=== PATIENT | male | born 1960 | race Caucasian/White ===

== ENCOUNTER → 2017-08-05 09:04 | Outpatient (CLI) | payer OTHER, SELFPAY ==
[2017-08-05 10:12] LABS: Absolute Lymphocyte Count 1.53 X10^3/ul (0.83-4.51); Absolute Neutrophil Count 2.7 X10^3/uL (2.0-7.7); Basophil# 0.01 X10^3/uL; Basophil% 0.2 % (0-1); Eosinophil# 0.03 X10^3/uL; Eosinophils% 0.7 % (0-5); Immature Platelet Fraction 1.2 % (1.0-7.9); Lymphocyte # 1.53 X10^3/ul (4.0); Lymphocyte % 33.5 % (19-41); Mean Corp Hgb Conc 31.7 g/gl (32-36); Mean Corpuscular Hgb 27.9 pg (27.0-32.0); Mean Platelet Vol. 9.8 fl (6.2-12.0); Monocyte# 0.26 X10^3/uL; Monocyte% 5.7 % (0-10); Neutrophil # 2.73 X10^3/uL (2.7-7.7); Neutrophil % 59.7 % (47-70); Platelet Count 234 K/mm3 (150-450); RBC Distribution Width CV 14.2 % (11.6-14.6); RBC Distribution Width SD 45.6 fl (35.1-43.9); Red Blood Count 4.66 M/mm3 (4.6-6.2); Reticulocyte Count 1.63 % (0.5-1.5); White Blood Count 4.6 K/mm3 (4.4-11.0)
[2017-08-05 10:13] LABS: POSITIVE COUNT NO; POSITIVE DIFFERENTIAL NO; POSITIVE MORPHOLOGY NO
[2017-08-05 10:49] LABS: Vitamin D,25 Hydroxy 15.1 ng/mL (29.95-100.01)
[2017-08-05 11:15] LABS: AST(SGOT) 20 U/L (15-37); Alanine Aminotransfer ALT/SGPT 33 U/L (16-61); Albumin, Serum 3.3 g/dL (3.2-5.0); Alkaline Phosphatase 117 U/L (45-117); Anion Gap 6 (5-15); BUN 12 mg/dL (7-18); BUN/Creat Ratio 13.8 RATIO (10-20); Calcium,Total 8.3 mg/dL (8.5-10.1); Chloride 107 mmol/L (98-107); Cholesterol 119 mg/dL (200); Creatinine, Serum 0.87 mg/dL (0.70-1.30); EST Glomerular Filtration Rate 96 mL/min (>60); Est Glom Filt Rate - Afr Amer 116 mL/min (>60); Ferritin 13 ng/mL (26-388); Globulin 3.4 g/dL (2.2-4.2); Glucose 142 mg/dL (74-106); High Density Lipoprotein 51 mg/dL; Iron Binding Capacity,Total 378 ug/dL (250-450); Magnesium 1.8 mg/dL (1.6-2.6); Potassium 3.7 mmol/L (3.5-5.1); Protein, Total 6.7 g/dL (6.4-8.2); Sodium Level 141 mmol/L (136-145); Thyroid Stim Hormone (TSH) 0.67 uIU/mL (0.358-3.74); Triglycerides 116 mg/dL; Uric Acid 4.5 mg/dL (3.5-7.2); Very Low Density Lipoprotein 23 mg/dL (5-40)
== END ==
PROVIDERS: Family Provider Family Medicine; PCP Family Medicine; Visit Provider Family Medicine
DX: E63.9 Nutritional deficiency, unspecified (principal); E61.1 Iron deficiency; D51.9 Vitamin B12 deficiency anemia, unspecified; E79.0 Hyperuricemia without signs of inflammatory arthritis and tophaceous disease; E11.39 Type 2 diabetes mellitus with other diabetic ophthalmic complication
CPT/HCPCS: 36415; 80053; 80061; 82043; 82306; 82570; 82728; 82746; 83550; 83735; 84100; 84443; 84550; 85025; 85045

== ENCOUNTER → 2018-10-04 | Outpatient (CLI) | payer BC, SELFPAY ==
[2015-03-11 08:19] VITALS: BMI 44.7
[2018-10-04 12:07] LABS: Absolute Lymphocyte Count 1.19 X10^3/ul (0.83-4.51); Absolute Neutrophil Count 4.1 X10^3/uL (2.0-7.7); Basophil# 0.01 X10^3/uL; Basophil% 0.2 % (0-1); Eosinophil# 0.09 X10^3/uL; Eosinophils% 1.6 % (0-5); Hematocrit 41.5 % (40-54); Immature Platelet Fraction 1.8 % (1.0-7.9); Lymphocyte # 1.19 X10^3/ul (4.0); Lymphocyte % 20.7 % (19-41); Mean Corp Hgb Conc 33.7 g/gl (32-36); Mean Corpuscular Hgb 30.6 pg (27.0-32.0); Mean Corpuscular Volume 90.6 fL (80-94); Mean Platelet Vol. 9.5 fl (6.2-12.0); Monocyte# 0.37 X10^3/uL; Monocyte% 6.4 % (0-10); Neutrophil # 4.07 X10^3/uL (2.7-7.7); Neutrophil % 70.9 % (47-70); Platelet Count 197 K/mm3 (150-450); RBC Distribution Width SD 42.6 fl (35.1-43.9); RET-HE 32.7 pg (30-35); Red Blood Count 4.58 M/mm3 (4.6-6.2); Reticulocyte Count 1.68 % (0.5-1.5); White Blood Count 5.7 K/mm3 (4.4-11.0)
[2018-10-04 12:13] LABS: POSITIVE COUNT NO; POSITIVE DIFFERENTIAL NO; POSITIVE MORPHOLOGY NO
[2018-10-04 12:21] LABS: Microalbumin,Random Urine 5.9 mg/L (NO RANGE EST.); Microalbumin:Creatinine Ratio 17.5 mg/g CRE (<30 mg/g CRE)
[2018-10-04 12:24] LABS: Vitamin D,25 Hydroxy 27.8 ng/mL (29.95-100.01)
[2018-10-04 12:47] LABS: ALB/GLOB Ratio 0.9 RATIO (0.9-2.4); AST(SGOT) 24 U/L (15-37); Alanine Aminotransfer ALT/SGPT 33 U/L (16-61); Albumin, Serum 3.1 g/dL (3.2-5.0); Alkaline Phosphatase 152 U/L (45-117); Anion Gap 9 (5-15); BUN 10 mg/dL (7-18); BUN/Creat Ratio 9.7 RATIO (10-20); Calcium,Total 8.4 mg/dL (8.5-10.1); Chloride 103 mmol/L (98-107); Cholesterol 75 mg/dL (200); Creatinine, Serum 1.03 mg/dL (0.70-1.30); EST Glomerular Filtration Rate 79 mL/min (>60); Est Glom Filt Rate - Afr Amer 95 mL/min (>60); Ferritin 139 ng/mL (26-388); Globulin 3.3 g/dL (2.2-4.2); Glucose 145 mg/dL (74-106); High Density Lipoprotein 37 mg/dL; Iron Binding Capacity,Total 246 ug/dL (250-450); Magnesium 1.7 mg/dL (1.6-2.6); Phosphorus 3.6 mg/dL (2.5-4.9); Potassium 3.7 mmol/L (3.5-5.1); Protein, Total 6.4 g/dL (6.4-8.2); Sodium Level 138 mmol/L (136-145); Thyroid Stim Hormone (TSH) 0.78 uIU/mL (0.358-3.74); Triglycerides 82 mg/dL; Uric Acid 3.4 mg/dL (3.5-7.2); Very Low Density Lipoprotein 16 mg/dL (5-40)
== END | disposition home or self-care (01) ==
LOC: MFPLAB 09:47
PROVIDERS: Family Provider Family Medicine; PCP Family Medicine; Referring Provider Family Medicine; Visit Provider Family Medicine
DX: E11.39 Type 2 diabetes mellitus with other diabetic ophthalmic complication (principal); E63.9 Nutritional deficiency, unspecified; E61.1 Iron deficiency; D53.1 Other megaloblastic anemias, not elsewhere classified; E79.0 Hyperuricemia without signs of inflammatory arthritis and tophaceous disease
CPT/HCPCS: 36415; 80053; 80061; 82043; 82306; 82570; 82728; 82746; 83550; 83735; 84100; 84443; 84550; 85025; 85045

== ENCOUNTER → 2019-06-27 09:21 | Outpatient (CLI) | payer BC, SELFPAY ==
[2015-03-11 08:19] VITALS: BMI 44.7
[2019-06-27 12:21] LABS: Absolute Lymphocyte Count 1.76 X10^3/uL (0.83-4.51); Basophil# 0.02 X10^3/uL; Basophil% 0.3 % (0-1); Eosinophil# 0.03 X10^3/uL; Eosinophils% 0.4 % (0-5); Hematocrit 49.3 % (40-54); Hemoglobin 16.4 g/dL (13.0-16.5); Lymphocyte # 1.76 X10^3/ul (4.0); Lymphocyte % 24.1 % (19-41); Mean Corp Hgb Conc 33.3 g/dL (32-36); Mean Corpuscular Hgb 30.6 pg (27.0-32.0); Mean Platelet Vol. 9.5 fl (6.2-12.0); Monocyte# 0.51 X10^3/uL; NRBC Flagged by Analyzer 0 % (0-5); Neutrophil # 4.96 X10^3/uL (2.7-7.7); Neutrophil % 67.8 % (47-70); Platelet Count 235 K/mm3 (150-450); RBC Distribution Width CV 13.1 % (11.6-14.6); RBC Distribution Width SD 44.1 fl (35.1-43.9); Red Blood Count 5.36 M/mm3 (4.6-6.2); White Blood Count 7.3 K/mm3 (4.4-11.0)
[2019-06-27 12:53] LABS: Hemoglobin A1c 6.5 % (4.2-6.3)
[2019-06-27 12:56] LABS: AST(SGOT) 52 U/L (15-37); Alanine Aminotransfer ALT/SGPT 103 U/L (16-61); Albumin, Serum 3.5 g/dL (3.2-5.0); Alkaline Phosphatase 133 U/L (45-117); Anion Gap 5 (5-15); BUN 17 mg/dL (7-18); BUN/Creat Ratio 14.9 RATIO (10-20); Calcium,Total 8.9 mg/dL (8.5-10.1); Chloride 106 mmol/L (98-107); Creatinine, Serum 1.14 mg/dL (0.70-1.30); EST Glomerular Filtration Rate 70 mL/min (>60); Est Glom Filt Rate - Afr Amer 85 mL/min (>60); Ferritin 244 ng/mL (26-388); Globulin 3.6 g/dL (2.2-4.2); Glucose 142 mg/dL (74-106); Iron 101 ug/dL (65-175); Iron Binding Capacity,Total 313 ug/dL (250-450); Magnesium 2.1 mg/dL (1.6-2.6); Potassium 3.9 mmol/L (3.5-5.1); Protein, Total 7.1 g/dL (6.4-8.2); Sodium Level 140 mmol/L (136-145); Thyroid Stim Hormone (TSH) 4.31 uIU/mL (0.358-3.74)
[2019-06-27 12:59] LABS: Vitamin B12 > 2000 pg/mL (211-911)
[2019-06-27 13:26] LABS: Microalbumin:Creatinine Ratio 12.2 mg/g CRE (<30 mg/g CRE)
== END ==
PROVIDERS: PCP Family Medicine; Referring Provider Family Medicine; Visit Provider Family Medicine
DX: E11.39 Type 2 diabetes mellitus with other diabetic ophthalmic complication (principal); D64.9 Anemia, unspecified; G62.9 Polyneuropathy, unspecified
CPT/HCPCS: 36415; 80053; 82043; 82570; 82607; 82728; 82746; 83036; 83540; 83550; 83735; 84443; 85025

== ENCOUNTER 2020-01-26 09:16 | Emergency (ER) | payer BC, SELFPAY ==
[2020-01-26] MEDS: Naloxone 2 MG/2 ML Syringe IV (09:17)
[2020-01-26 09:18] VITALS: BP 139/88; PULSE 91; RESP 28; TEMP 36.8; O2SAT 98; BMI 41.0
--- NOTE | 2020-01-26 09:23 | EKG12_ITS ---
Test Reason : UNRESPONSIVE Blood Pressure : / mmHG Vent. Rate : 089 BPM Atrial Rate : 089 BPM P-R Int : 184 ms QRS Dur : 138 ms QT Int : 402 ms P-R-T Axes : 072 006 016 degrees QTc Int : 489 ms Normal sinus rhythm Right bundle branch block T wave abnormality, consider inferior ischemia Abnormal ECG Confirmed by MARISSA NELSON, LOKESH ([id number]), make up editor RACHEL BECK ([id number]) on 01/27/2020 11:33:01 A M Referred By: VIMAL Confirmed By:ANTONIO ANN MD
--- NOTE | 2020-01-26 09:23 | RAD_ITS ---
STUDY: X-RAY CHEST REASON FOR EXAM: Male, 59 years old. PD FOUND PT UNRESPONSIVE IN VEHICLE. SNORING RESP, PULSE [address], PINPOINT PUPILS, TURNING BLUE FOR EMS. TECHNIQUE: Single AP portable view of the chest. COMPARISON: 09/01/2011. FINDINGS: Cardiac silhouette unremarkable. Minimal congestion. Aorta unremarkable. Faint hazy airspace opacities. No pleural effusions. Stable left lower lung/peripheral nodule Upper abdomen unremarkable. Osseous structures intact. No pneumothorax. RAD/Chest 1 View (Portable) IMPRESSION: Faint hazy airspace opacities with minimal congestion Stable left lower lung/peripheral nodule Electronically Signed: Fran Edwards DO at 9:51 EDT Tel , Service support ,
--- NOTE | 2020-01-26 09:24 | ED.RN ---
AFTER NARCAN ADMINISTRATION, PT BECAME RESPONSIVE.
[2020-01-26 09:44] LABS: Absolute Lymphocyte Count 2.11 X10^3/uL (0.83-4.51); Absolute Neutrophil Count 3.3 X10^3/uL (2.0-7.7); Basophil# 0.02 X10^3/uL; Basophil% 0.3 % (0-1); Eosinophil# 0.06 X10^3/uL; Hemoglobin 15.6 g/dL (13.0-16.5); Lymphocyte # 2.11 X10^3/ul (4.0); Lymphocyte % 35.3 % (19-41); Mean Corp Hgb Conc 32.5 g/dL (32-36); Mean Corpuscular Hgb 30.1 pg (27.0-32.0); Mean Corpuscular Volume 92.7 fL (80-94); Mean Platelet Vol. 9.5 fl (6.2-12.0); Monocyte# 0.47 X10^3/uL; Monocyte% 7.9 % (0-10); NRBC Flagged by Analyzer 0 % (0-5); Neutrophil # 3.26 X10^3/uL (2.7-7.7); Neutrophil % 54.5 % (47-70); Platelet Count 174 K/mm3 (150-450); RBC Distribution Width CV 12.8 % (11.6-14.6); RBC Distribution Width SD 43.4 fl (35.1-43.9); Red Blood Count 5.18 M/mm3 (4.6-6.2)
[2020-01-26 09:58] LABS: AST(SGOT) 47 U/L (15-37); Alanine Aminotransfer ALT/SGPT 57 U/L (16-61); Albumin, Serum 3.3 g/dL (3.2-5.0); Alkaline Phosphatase 113 U/L (45-117); Anion Gap 6 (5-15); BUN 13 mg/dL (7-18); BUN/Creat Ratio 10.6 RATIO (10-20); Calcium,Total 8.3 mg/dL (8.5-10.1); Chloride 103 mmol/L (98-107); Creatinine, Serum 1.23 mg/dL (0.70-1.30); EST Glomerular Filtration Rate 64 mL/min (>60); Est Glom Filt Rate - Afr Amer 77 mL/min (>60); Estimated Creatinine Clearance 70.98 ml/min; Globulin 3.4 g/dL (2.2-4.2); Glucose 252 mg/dL (74-106); Potassium 4.1 mmol/L (3.5-5.1); Protein, Total 6.7 g/dL (6.4-8.2); Sodium Level 136 mmol/L (136-145)
--- NOTE | 2020-01-26 10:07 | ED.VISSUMM ---
- ER Visit Summary Date of Service: 01/26/20 Chief Complaint: Unresponsive History of Present Illness: The patient is a 59 M who presents by EMS after being found unresponsive by police. Patient was apparently driving his car and was starting to become unresponsive. Patient apparently pulled his car off to the side of the road. Police found the patient unresponsive. EMS reported the blood sugar was 233. EMS placed the patient on oxygen. Patient had no improvement with this. Patient was given Narcan and became more awake. Patient does not remember getting dressed or driving his car today. Later, the patient remembered taking medication from a friend. He does not know what the medication was. Physical Examination: Vital signs are stable. Patient is afebrile. Patient is in no acute distress. Pupils are 3 mm and reactive. Oral mucosa is pink and moist. Neck is supple. Trachea is midline. There is no JVD noted. Heart was regular rate and rhythm. Lungs are clear and equal bilaterally. Patient has shallow respirations. Abdomen is soft. Bowel sounds are normal. There is no tenderness. There is no rebound or guarding noted. Skin is warm dry. Cranial nerves II through XII are intact. There are no focal motor or sensory deficits noted. Extremities are intact. There is no calf tenderness or edema. Test Results: EKG showed normal sinus rhythm with a rate of 89. There is a right bundle branch block pattern noted. There are no acute ST or T wave changes. There are no prior EKGs available for comparison. CBC and comprehensive metabolic profile were essentially within normal limits. Glucose was elevated at 252. Troponin was normal. Portable chest x-ray was obtained. There are faint hazy airspace opacities with minimal congestion. There is a stable left lower lung peripheral nodule. There is no acute cardiopulmonary process. This was interpreted by the radiologist and reviewed by myself. Emergency Department Course and Treatment: Patient was given 2 mg of Narcan IV. Patient became more awake and alert after this. Patient was given IV fluids. On reevaluation, the patient admits to taking 1 tablet of either oxycodone or hydrocodone today. Patient denies taking it with tramadol or other medications. Patient states that was the only medicine he took today. Patient currently remains awake, alert, and oriented x3. Patient was observed in the emergency department. Patient was instructed to follow-up with his primary care physician in 5 to 7 days. Patient understood and was agreeable with the plan. All questions were answered. Disposition: Discharge home Impression: 1. Opiate overdose This note was generated with [employer] dictation software. It may contain incorrect words, spelling, and punctuation that were not noted in review of the chart prior to signing ED Disposition - Plan for ED Patient: Disposition: Home or Assisted Living Diagnosis: Opiate overdose Instructions: ED Overdose Opiate Referrals: Fran Garcia MD [Primary Care Provider] - 5-7 Days
[2020-01-26 10:54] VITALS: BP 130/71; PULSE 82; RESP 17; O2SAT 96
[2020-01-26 11:13] VITALS: BP 130/86; PULSE 81; RESP 15; O2SAT 96
--- NOTE | 2020-01-26 11:33 | ED.RN ---
pt wondering how long pt is to be observed. this rn talked with physician. pt also requesting information on detox/ drug addiction services. Sarai hyatt
--- NOTE | 2020-01-26 11:46 | CM.ED ---
Social Work Consult: Substance Abuse Informant: Nursing staff Chief Complaint: Patient became unresponsive after taking a friend prescription medication. 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 Marital/Social History: . to Erickann. Patient has no children. Living Situation: Lives with spouse. Support/Resources: No active community resources. Education/Employment: Disability. Patient makes pottery dishes to sell. Patient denies any concerns for comprehension or understanding. Abuse Issues: Did not assess Substance Abuse/use: Patient reports history of prescription drug abuse for the past 10 years. Patient states to have taken patient spouse medication last week when I caught him states patient spouse. Patient denies any other substance abuse/use. Risk to Self/Others: Patient admits to having suicidal thoughts with no plan an no intent. Patient suicidal thoughts are not daily or frequent. Patient states to want to live for spouse and to not want to put my family through that. Mental Status Exam: A&Ox3 Appearance/General Behavior: Appropriate. Calm. Mood/Affect: Frustrated with self. I made a dumb choice. Patient states to be frustrated that patient has now lost patient spouse trust and I understand why. Assessment: Met with patient and patient spouse in room. Introduced self and bilingual social worker role. Patient agreeable to speaking with this bilingual social worker and wanting patient spouse to remain in the room during conversation. Patient is requesting information on substance abuse resources and voicing interest in starting a program. This bilingual social worker providing patient with substance abuse resources and encouraging patient to follow up with community supports. Patient and patient spouse thanking this bilingual social worker. Patient spouse visibly frustrated with patient due to patient choices today. This bilingual social worker able to facilitate conversation about things that patient is currently able to control such as getting set up with community supports. Active listening provided. PLAN: Discharge to home with spouse. Naren CABRERA, EUNICE
[2020-01-26 11:56] VITALS: BP 125/85; PULSE 76; RESP 18; O2SAT 96
--- NOTE | 2020-01-26 12:02 | ED.RN ---
pt requesting [place] police to stop back into department so pt can apologize. dispatch contacted
[2020-01-26 12:18] VITALS: BP 139/96; PULSE 77; RESP 16; TEMP 36.1
== END 2020-01-26 12:32 | disposition home or self-care (01) ==
PROVIDERS: Emergency Provider Emergency Medicine; PCP Family Medicine
DX: T40.601A Poisoning by unspecified narcotics, accidental (unintentional), initial encounter (principal); Y92.810 Car as the place of occurrence of the external cause; I45.10 Unspecified right bundle-branch block; M54.2 Cervicalgia; R05 Cough; R73.02 Impaired glucose tolerance (oral); J02.9 Acute pharyngitis, unspecified; R06.00 Dyspnea, unspecified; E66.9 Obesity, unspecified; Z72.0 Tobacco use; Z79.01 Long term (current) use of anticoagulants; Z79.899 Other long term (current) drug therapy
CPT/HCPCS: 71045; 80053; 84484; 85025; 93005; 96361; 96374; 99285; A4216

== ENCOUNTER 2020-01-27 11:37 | Emergency (ER) | payer BC, SELFPAY ==
[2020-01-26 09:18] VITALS: BMI 41.0
[2020-01-27 11:38] VITALS: BP 149/97; PULSE 90; RESP 10; TEMP 36.8; O2SAT 100; BMI 41.0
--- NOTE | 2020-01-27 11:44 | ED.RN ---
PT STATES HE TOOK A 30MG OXYCODONE.
--- NOTE | 2020-01-27 12:06 | CT_ITS ---
STUDY: CT BRAIN WITHOUT CONTRAST REASON FOR EXAM: Male, 59 years old. FALL RADIATION DOSAGE (If Supplied By Facility): CTDIvol = ( 60.81 ) mGy, DLP = ( 1112.69 ) mGycm TECHNIQUE: Transaxial CT imaging of the brain was performed without administration of intravenous contrast material. Individualized dose optimization techniques were used for this CT. COMPARISON: No relevant priors. FINDINGS: Small frontal scalp hematoma with evidence of the sutures. Normal calvarium. Normal size ventricles and extra-axial spaces for the patient''s age. Normal white matter tracts of the cerebral hemispheres. Normal basal ganglia and thalami. Normal brainstem. Normal cerebellum. There is no intracranial hemorrhage. There are no findings of an acute ischemic infarction. Normal visualized paranasal sinuses. CT/Brain/Head without Contrast IMPRESSION: Frontal scalp soft tissue swelling and hematoma with evidence of laceration. Electronically Signed: Juan Winston, at 12:36 EDT , Service support ,
--- NOTE | 2020-01-27 12:07 | CT_ITS ---
STUDY: CT CERVICAL SPINE WITHOUT CONTRAST REASON FOR EXAM: Male, 59 years old. FALL RADIATION DOSAGE (If Supplied By Facility): CTDIvol = ( 32.11 ) mGy, DLP = ( 714.19 ) mGycm TECHNIQUE: High resolution transaxial imaging was performed without contrast material. Sagittal and coronal images were reconstructed. Individualized dose optimization techniques were used for this CT. COMPARISON: None FINDINGS: Normal craniovertebral junction. Normal anterior atlantoaxial articulation. Normal odontoid process. Normal cervical lordosis. Normal vertebral bodies and posterior osseous elements. C2-3: Normal endplates. Normal disc height and morphology. Normal central canal and intervertebral neuroforamina. C3-4: Normal endplates. Normal disc height and morphology. Normal central canal and intervertebral neuroforamina. C4-5: Normal endplates. Normal disc height and morphology. Normal central canal and intervertebral neuroforamina. C5-6: Normal endplates. Normal disc height and morphology. Normal central canal and intervertebral neuroforamina. C6-7: Normal endplates. Normal disc height and morphology. Normal central canal and intervertebral neuroforamina. C7-T1: Normal endplates. Normal disc height and morphology. Normal central canal and intervertebral neuroforamina. Normal visualized soft tissue structures. CT/Spine Cervical without Contras IMPRESSION: Normal unenhanced CT examination of the cervical spine. Electronically Signed: Juan Winston, at 12:52 EDT , Service support ,
--- NOTE | 2020-01-27 12:53 | ED.DCSUM_ITS ---
- ER Visit Summary Date of Service: 01/27/20 Chief Complaint: Overdose History of Present Illness: The patient is a 59 M who presents after overdose today. Patient was seen here yesterday for the same thing. Patient states he took a 30 mg tablet of OxyContin today. Patient was found unresponsive at work. Patient fell and hit his head. EMS administered 2 mg of Narcan intranasally. Patient became more awake and alert after this. Patient denies any nausea or vomiting. Patient denies any diarrhea. Patient denies any seizures. Patient denies any chest pain or shortness of breath. Patient does admit to some pain in his head, neck, and upper back. Physical Examination: Vital signs are stable. Patient is afebrile. Patient is in no acute distress. Skin is warm and dry. There are abrasions noted over the forehead. There is no active bleeding. There is no bony crepitance or step- off. Pupils are equal, round, and reactive to light bilaterally. Extraocular muscles are intact. There is some dried blood noted over the external nose. There is some dried blood in the right nares. There is no blood in the left nares. There is no septal deviation or septal hematoma. Oral mucosa is pink and moist. Oropharynx is clear. Neck is supple. Trachea is midline. There is no JVD. Heart was regular rate and rhythm. Lungs are clear and equal bilaterally. Abdomen is soft and nontender. Cranial nerves II through XII are intact. There are no focal motor or sensory deficits. Test Results: CT scan of the brain was obtained. There is no acute intracranial abnormality. CT scan of the cervical spine was obtained. There is no acute fracture or dislocation. X-rays of the thoracic spine were obtained. There is no acute abnormality. On reevaluation, patient was complaining of pain in his right foot and ankle. There is some tenderness to palpation over this area. X- rays of the right foot and ankle were obtained. There is no acute fracture. These were interpreted by the radiologist and reviewed by myself. Emergency Department Course and Treatment: There were multiple abrasions noted over the face. There is also a 1 cm full-thickness linear laceration over the right upper lip just inferior to the right nares. There is minimal gapping of the wound margins. There are no foreign bodies. There is no through and through laceration noted. The wound was cleaned and irrigated with copious amounts of normal saline. The wound was closed with Dermabond skin adhesive. Patient tolerated procedure well. Patient was instructed to urinary care physician in 5 to 7 days. Patient was instructed to stop taking oxycodone. Patient was instructed to take Tylenol as needed for pain. Patient understood and was agreeable with the plan. All questions were answered. Disposition: Discharge home Impression: 1. Opiate overdose 2. Upper lip laceration 3. Facial abrasions 4. Cervical strain This note was generated with [employer] dictation software. It may contain incorrect words, spelling, and punctuation that were not noted in review of the chart prior to signing ED Disposition - Plan for ED Patient: Disposition: Home or Assisted Living Diagnosis: Opiate overdose, Facial laceration, Facial abrasion, Cervical strain, acute Instructions: ED Laceration Facial Skin Glue, ED Overdose Opiate Referrals: Fran Garcia MD [Primary Care Provider] - 5-7 Days
--- NOTE | 2020-01-27 12:55 | RAD_ITS ---
STUDY: X-RAY - THORACIC SPINE REASON FOR EXAM: Male, 59 years old. Fall, back pain TECHNIQUE: 3 view(s) of the thoracic spine were obtained. COMPARISON: None. FINDINGS: Normal kyphosis of the thoracic spine. There is no substantial scoliosis. There is demineralization of the thoracic spine with endplate spondylosis. There is multilevel disc space narrowing of the thoracic spine. The soft tissue structures are unremarkable. RAD/Thoracic Spine 3 Views IMPRESSION: Multilevel degenerative changes. No fractures. Electronically Signed: Juan Winston, at 13:17 EDT , Service support ,
[2020-01-27 13:17] VITALS: BP 123/85; PULSE 78; RESP 12; O2SAT 99
[2020-01-27] MEDS: Diphth,Pertuss(Acell),Tet Vac 0.5 ML Vial IM (13:34)
--- NOTE | 2020-01-27 14:00 | CM.ED ---
SOCIAL WORK Informant: Charge Nurse, Lois Reason for Consult: Overdose Reviewed chart. Patient seen by ED Sarai HUITRON yesterday. Met with patient in room. Introduced role and reason for referral. Patient states took 30mg Oxy today and don't understand, I have taken them before and never had this happen. Patient states he passed out at work. Discussed ER visit from yesterday and inquired if patient is wanting help with substance use. Patient states has appointment with counseling through '[facility] on Thursday. Patient reports counselors name is Urmila Castelan. Patient states, I also have that purple folder. Patient was given resources by ED SW yesterday. Patient denies any needs or referrals at this time. Updated nurse on this worker's conversation with patient. Will remain available for needs. Plan: RICK Ceballos, METER ENGINEER
[2020-01-27 14:12] VITALS: BP 139/81; PULSE 92; RESP 20; O2SAT 96
--- NOTE | 2020-01-27 14:36 | RAD_ITS ---
STUDY: X-RAY - RIGHT FOOT CLINICAL: Male, 59 years old. fall, right foot pain TECHNIQUE: 3 view(s) of the foot. COMPARISON: None. FINDINGS: Normal talus, calcaneus, and tarsal bones. Normal visualized subtalar, talonavicular, calcaneocuboid, tarsal and tarsometatarsal articulations. Normal metatarsi. Mild cortical thickening is seen along the shafts of the third and fourth metatarsal bones suggesting sequela from previous trauma or possible previous infection or inflammation. No visualized acute fracture. No evidence of osteomyelitis. The soft tissue structures are unremarkable. RAD/Foot min 3 Views IMPRESSION: 1. Mild cortical thickening is seen along the shafts of the third and fourth metatarsal bones suggesting sequela from previous trauma or possible previous infection or inflammation. No visualized acute fracture. No evidence of osteomyelitis. Electronically Signed: Rodney Kenny MD at 16:41 EDT , Service support ,
--- NOTE | 2020-01-27 15:40 | RAD_ITS ---
STUDY: X-RAY - RIGHT ANKLE REASON FOR EXAM: Male, 59 years old. fall, ankle pain TECHNIQUE: 3 view(s) of the ankle. COMPARISON: None. FINDINGS: A small plantar calcaneal spur is present. Mild soft tissue edema is present in the lower leg and ankle. Small soft tissue calcifications are also seen on the medial side of the lower leg. Normal visualized distal tibia and fibula. Normal medial and lateral malleoli. Normal tibiotalar articulation and ankle mortise. Normal visualized talus and calcaneus. The visualized subtalar, talonavicular, calcaneocuboid and tarsal articulations are normal. No visualized fracture. RAD/Ankle min 3 Views IMPRESSION: Mild soft tissue swelling Electronically Signed: Rodney Kenny MD at 16:36 EDT , Service support ,
[2020-01-27 15:41] VITALS: BP 117/71; PULSE 86; RESP 19; O2SAT 99
[2020-01-27 17:02] VITALS: BP 120/72; PULSE 87; RESP 18; O2SAT 99
== END 2020-01-27 17:03 | disposition home or self-care (01) ==
PROVIDERS: Emergency Provider Emergency Medicine; PCP Family Medicine
DX: T40.2X1A Poisoning by other opioids, accidental (unintentional), initial encounter (principal); Y92.9 Unspecified place or not applicable; S16.1XXA Strain of muscle, fascia and tendon at neck level, initial encounter; S01.511A Laceration without foreign body of lip, initial encounter; S00.81XA Abrasion of other part of head, initial encounter; M25.571 Pain in right ankle and joints of right foot; Z23 Encounter for immunization; W19.XXXA Unspecified fall, initial encounter; Y93.9 Activity, unspecified; Y99.0 Civilian activity done for income or pay; Z79.01 Long term (current) use of anticoagulants; Z79.899 Other long term (current) drug therapy
CPT/HCPCS: 12011; 70450; 72072; 72125; 73610; 73630; 90471; 90715; 99285; A4216

== ENCOUNTER → 2020-06-28 05:40 | Outpatient (CLI) | payer BC, SELFPAY ==
--- NOTE | 2020-07-01 15:25 | STRESSREP ---
Stress Test Report Date: 06/28/2020 Procedure: Pharmacologic stress nuclear imaging study Indications: Chest pain Consent: Per the patient Procedure: The patient underwent pharmacologic (Regadenoson) evaluation with a peak heart rate of 110 beats per minute (68%predicted maximal heart rate) and a peak blood pressure of 130/78 mmHg. The baseline ECG demonstrated normal sinus rhythm, right bundle branch block. EKG during lexiscan infusion revealed no significant ischemic changes. EKG post infusion revealed no significant ischemic changes [There were no cardiac dysrhythmias pretest, during pharmacologic infusion, or recovery]. [There was no complaint of chest discomfort during pharmacologic infusion or recovery]. The examination was discontinued secondary to completion of protocol. Impression: 1. Lexiscan stress test test is negative for Lexiscan infusion induced EKG changes of ischemia. 2. Lexiscan stress test test is negative for Lexiscan infusion induced chest pain. 3. Results of the nuclear portion of the test is as below Myocardial perfusion imaging study: Technique: The patient was injected with 14.9 millicuries of technetium 99m Cardiolite and subsequently rest SPECT Cardiolite nuclear imaging was obtained in the horizontal long, vertical long, and short axis views. The patient underwent pharmacologic evaluation with 0.4 mg of Lexiscan. Please see above for details. The patient was injected with 44.8 millicuries of technetium 99m Cardiolite and subsequently stress SPECT Cardiolite nuclear imaging was obtained in the horizontal long, vertical long, and short axis views. A gated Cardiolite study at peak stress was obtained. Interpretation: Rest and stress SPECT Cardiolite nuclear imaging status post realignment, normalization, and attenuation correction demonstrate mild inferior defect prior to attenuation correction. After attenuation correction there is normal uptake in the inferior wall. There is mild decrease in the radioisotope uptake in the apex on both the rest and stress images. Gated images reveal mild apical hypokinesis. These findings are suggestive of possible prior apical myocardial infarction with no evidence of significant ischemia. Diaphragmatic attenuation. The reported LVEF is 53%. Impression: 1. There is no evidence of significant ischemia. Possible prior apical myocardial infarction. 2. Estimated ejection fraction is 53% with mild apical hypokinesis. This note was generated with [employer] software. It may contain incorrect words, spelling, and punctuation that were not noted in checking the note before signing.
== END ==
PROVIDERS: PCP Family Medicine; Referring Provider Internal Medicine Endocrinology, Diabetes & Metabolism; Visit Provider Internal Medicine Endocrinology, Diabetes & Metabolism
DX: I20.9 Angina pectoris, unspecified (principal)
CPT/HCPCS: 78452; 93017; A9500; A4216; J2785

== ENCOUNTER → 2020-07-19 10:32 | Outpatient (CLI) | payer BC, SELFPAY ==
[2020-07-11 09:18] VITALS: BMI 43.4
--- NOTE | 2020-07-19 10:35 | ECHOCS_ITS ---
Reason For Study: HTN Procedure This was a 2D Doppler, Color Flow transthoracic echocardiogram. The study was technically difficult. Exam performed in department. Left Ventricle Normal LV size. Left ventricular systolic function is lower limits of normal. The estimated ejection fraction is 47 %. Stage 1 diastolic dysfunction. There is mild global hypokinesis of the left ventricle. Right Ventricle Normal RV size. Normal systolic function. Atria Normal left atrium. Normal right atrium. Mitral Valve Normal mitral valve. Tricuspid Valve Normal tricuspid valve. Unable to estimate RV systolic pressure due to inadequate jet, pulmonary artery pressure probably normal. Great Vessels Mild to moderately dilated aortic root. Pericardium/Pleural No pericardial effusion. Medication 22 gauge I.V. with prn adaptor inserted into right arm. Diluted definity 3ml given slow IV push to enhance endocardial definition. MMode/2D Measurements & Calculations LVIDd: 5.2 cm IVSd: 1.0 cm Ao root diam: 4.2 cm LVIDs: 3.5 cm LVPWd: 1.1 cm RVDd: 3.8 cm FS: 32.8 % LAV(MOD-bp): 47.7 ml LA A4 area: 17.5 cm2 LA dimension(2D): 4.6 cm LAV(MOD-bp) Indexed: 18.3 ml/m2 LAV(MOD-sp2): 46.8 ml LAV(MOD-sp4): 47.5 ml RA A4 area: 14.0 cm2 Doppler Measurements & Calculations MV E max christian: 52.9 cm/sec Lat Peak E' Christian: 8.9 cm/sec Med Peak E' Christian: 5.9 cm/sec MV A max christian: 74.8 cm/sec E/E' lat: 6.0 E/E' med: 9.0 MV E/A: 0.71 Ao V2 max: 124.5 cm/sec LV V1 max: 99.6 cm/sec PA V2 max: 91.3 cm/sec Ao max P.2 mmHg LV V1 max P.0 mmHg Interpretation Summary Normal LV size. Left ventricular systolic function is lower limits of normal. The estimated ejection fraction is 47 %. There is mild global hypokinesis of the left ventricle. Stage 1 diastolic dysfunction. Contrast injection was performed. Ordering Physician: Bunny Montez Referring Physician: Fran Garcia MD Performed By: Ellen Franklin RDCS
== END ==
PROVIDERS: PCP Family Medicine; Referring Provider Internal Medicine Cardiovascular Disease; Visit Provider Internal Medicine Cardiovascular Disease
DX: I10 Essential (primary) hypertension (principal)
CPT/HCPCS: 93306; Q9957; A4216; C8929

== ENCOUNTER → 2020-11-07 09:45 | Outpatient (CLI) | payer BC, SELFPAY ==
[2020-07-11 09:18] VITALS: BMI 43.4
--- NOTE | 2020-11-07 09:48 | RAD_ITS ---
STUDY: X-RAY - LEFT ANKLE REASON FOR EXAM: Male, 60 years old. PAIN TECHNIQUE: 3 view(s) of the ankle. COMPARISON: None. FINDINGS: Normal visualized distal tibia and fibula. Normal medial and lateral malleoli. Normal tibiotalar articulation and ankle mortise. Normal visualized talus. The visualized subtalar, talonavicular, calcaneocuboid and tarsal articulations are normal. Diffuse soft tissue swelling, subtle occult fracture cannot be excluded. RAD/Ankle min 3 Views IMPRESSION: No demonstrated fracture or ankle mortise abnormality Calcaneal spurs Nonspecific soft tissue swelling Electronically Signed: Cam Boles MD at 12:08 EDT , Service support ,
== END ==
PROVIDERS: PCP Family Medicine; Referring Provider Family Medicine; Visit Provider Family Medicine
DX: M25.572 Pain in left ankle and joints of left foot (principal)
CPT/HCPCS: 73610

== ENCOUNTER 2021-01-10 09:00 | Outpatient (RCR) | payer BC, SELFPAY ==
[2020-07-11 09:18] VITALS: BMI 43.4
--- NOTE | 2020-12-12 10:08 | HP.PTEVAL_ITS ---
Patient's Visit Information NORTH VALLADARES is a 60 year old M referred to Physical Therapy by Dr. Ronel Andrade MD with a diagnosis of LEFT ANKLE STRAIN. Date of Evaluation: 12/12/20 Physical Therapist: Long Celis PT, Cert MDT, OCS - Visit Plan Frequency: 2x /Week Duration: 4 Weeks Plan: PT INTEREVTIONS ANKLE ROM ,STRENGHENING RIGHT ANKLE ,HIP/KNEE STRENGTHENING ,FUNCTIONAL STRENGTHENING AND FLEXABLITY - Subjective This 60 y/o male presents to physical therapy with left ankle sprain. Patient was stepping of bed of trunk land on left leg and fell down due to compression of ankle . Patient seen DR 1 day later did x-rays - with fracture recommended PT. Initial, Patient did have ecchymosis ankle toes. Patient has pain with walking and standing affects ADLS' thus uses cane for extended distances .Patient is unable to squat /kneel has difficulty with stairs with one steps at a time. Patient denies paresthesia occasional tingling . Patient symptoms pain affects ADL'S and pottery which is hobby. Patient condition affects QOL and function. Patient does have pain entire leg knee and ankle describe as ache .COMORITIES: BILATERAL THR ,LUMBAR SURGERY. SOCAIL: . VOACTION: disability - Pain Left Ankle Pain Intensity (Out of 10): 3 Pain Intensity Range: 10 Comment: walking - Objective POSTURE: mild forward posture. GAIT: reciprocal pattern antalgic gait with cane. EDEMA: 1+ ANKLE. PROPRIOCEPTION: POOR. BALANCE: GOOD-. AROM ANKLE: dorsiflexion 5 degrees, plantar flexion 50 degrees ,inversion 20 degrees, eversion 5 degrees. MMT: ankle dorsiflexion 4/5.eversion/inversion/plantar flexion 4-/5,quads/hams 4-/5,hip flexion 4-/5,abd 3+/5. STAIRS: one steps at time with rail - Goals Goal 1:: I with HEP Goal Time Frame: 4-6 Weeks Goal 2:: Decrease pain ankle by 60% or > to improve function with ADL'S and gait Goal Time Frame: 4-6 Weeks Goal 3:: Patient to improve ankle WFL to improve gait Goal Time Frame: 4-6 Weeks Goal 4:: Patient to increase ankle strength 4/5 to improve gait and function. Goal Time Frame: 4-6 Weeks Goal 5:: Patient to improve LFES score by 5 points or > to improve function and gait. Goal Time Frame: 4-6 Weeks - Rehabilitation Potential Physical Therapy Diagnosis: This patient has left ankle sprain with swelling, pain, weakness ,decrease ROM impairs gait and function thus benefit from skilled PT Rehabilitation Potential: Good - Anticipated Interventions Patient/Client Instruction: Educate patient on: Condition, Plan of Care For the Purpose of:: To decrease pain, To increase ROM, To improve muscle performance and motor function, To improve ability to perform ADL's, To increase tolerance to activity/condition/position, To improve ability of physical actions for home/community/work/leisure, To improve health of tissue, To decrease soft tissue restriction, To increase flexibility/ROM, To improve endurance, To improve balance, To prevent re-injury Therapeutic Exercise to Include: Strength training, Endurance training, Balance training, Passive ROM, Active ROM Comment: ANKLE /HIP/KNEE For the Purpose of:: To decrease pain, To increase ROM, To improve muscle performance and motor function, To improve ability to perform ADL's, To increase tolerance to activity/condition/position, To improve gait and locomotor functions, To improve health of tissue, To decrease soft tissue restriction, To increase flexibility/ROM, To improve endurance, To improve balance, To improve s afety with gait, To improve ability to perform tasks related to life management TENS: Yes IF ES: Yes Thermo therapy (hot pack): Yes Ultrasound (thermal/non thermal): Yes For the Purpose of:: To decrease pain, To decrease swelling/inflammation, To increase ROM, To improve nutrient delivery to tissue, To increase oxygenation perfusion, To improve health of tissue, To decrease soft tissue restriction Thank you for the opportunity to evaluate your patient. For Medicare and Medicare HMO plans, please review the plan of care and approve it. It will need to be FAXED BACK to us at [phone] for Medicare purposes. For Medicare only, by signing this I certify the plan of care. Please let me know if there are questions or concerns regarding this plan of care. Physician Signature: Date:
--- NOTE | 2021-01-10 09:37 | HP.PTDCSUM ---
It has been my pleasure to treat NORTH VALLADARES referred by Dr. Ronel Andrade MD, with the diagnosis of LEFT ANKLE STRAIN for a total of 9 visit(s). Discharge Date: 01/10/21 Please see the following information for a summary of their discharge status. Subjective: Doing better overall ..but conts ro get occasional stabbing pain Left Ankle Pain Intensity (Out of 10): 2 % Improvement: 85 Objective/Function: POSTURE: MILD FORWARD POSTURE. GAIT:RECIPROCAL PATTERN WITH CANE ANTALGIC GAIT. MMT: QUADS/HAMS 4/5,ANKLE 4/5,HIP FLEXION 4-/5. STAIRS: ALTERANTING WITH CANE Goal 1:: I with HEP Goal Progress: Goal Met Goal 2:: Decrease pain ankle by 60% or > to improve function with ADL'S and gait Goal Progress: Goal Met Goal 3:: Patient to improve ankle WFL to improve gait Goal Progress: Goal Met Goal 4:: Patient to increase ankle strength 4/5 to improve gait and function. Goal Progress: Goal Met Goal 5:: Patient to improve LFES score by 5 points or > to improve function and gait. Goal Progress: Goal Met Plan: D/C TO HEP Discharge Comments: HEP If there are questions or concerns regarding this patient's physical therapy, please feel free to call me at [phone]. Thank you for the referral of this patient. Sincerely, Long Celis, PT, Cert MDT, OCS Balance/Gait/Functional tests - Balance/Special Test Scores Lower Extremity Functional Score: 47
== END 2021-01-10 19:00 | disposition home or self-care (01) ==
LOC: PT 09:00
PROVIDERS: PCP Family Medicine; Referring Provider Family Medicine; Visit Provider Family Medicine
DX: S96.912D Strain of unspecified muscle and tendon at ankle and foot level, left foot, subsequent encounter (principal)
CPT/HCPCS: 97110; 97162